=== PATIENT | female | born 1935 | race Two or more races ===

== ENCOUNTER 2024-08-19 09:15 | Inpatient (IN) | payer MEDICARE, BC, SELFPAY ==
[2024-08-19] VITALS (7 sets, daily range): BP systolic 107–173; BP diastolic 64–128; PULSE 88–135; RESP 16–19; TEMP 36.2–37.6; O2SAT 96–99; BMI 18.3; BMI 14.1
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
--- NOTE | 2024-08-19 09:28 | EKG_ITS ---
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
--- NOTE | 2024-08-19 09:42 | PC.NURSE ---
Patient to er from home via ems with c/o failure to thrive after change in medication. Currently patient alert to person, not place or time, not answering all questions. When asking patient if she is having pain patient states no , [facility], chart up to be seen by er provider.
--- NOTE | 2024-08-19 10:11 | PC.NURSE ---
Spoke with patient's son Ronnie via telephone states patient has been more weak, loss of appetite and c/o bone pain for the past weak that has progressively gotten worse, per Ronnie states he believes it is do to her change in medications, will notify provider.
[2024-08-19 10:15] LABS: Collection Type, Urine Catheter; Squamous Epithelial Cell,Urine 0 /hpf (0-5)
[2024-08-19 10:24] LABS: Amorphous Crystals,Urine Present (Absent); Bacteria,Urine Rare; Bilirubin,Urine Negative (Negative); Blood,Urine 2+ (Negative); Color,Urine Yellow (Lt Yel-Yel); Glucose, Urine Negative (Negative); Ketones,Urine 1+ (Negative); Leukocyte Esterase,Urine Positive (Negative); Nitrite,Urine Negative (Negative); PH,Urine 6.5 (5.0-7.0); Protein,Urine 1+ (Neg - Trace); RBC,Urine 17 /hpf (0-3); Specific Gravity,Urine 1.023 (1.001-1.035); WBC,Urine 56 /hpf (0-5)
[2024-08-19 10:28] LABS: Lactate (Lactic Acid) 1.6 mMol/L (0.4-2.0)
--- NOTE | 2024-08-19 10:32 | XR_ITS ---
Examination: AP chest single view Technique one AP portable semiupright chest single view Exam date and time: August 19, 2024 at 10:55 AM Comparison May 31, 2024 INDICATIONS: Coughing shortness of breath beginning 3 days ago. FINDINGS: Normal heart size Ectatic thoracic aorta. No lobar pneumonia or pulmonary edema Prominent osteopenia with thoracic dextroscoliosis Prominent bilateral shoulder calcific tendinitis IMPRESSION: No pneumonia or pulmonary edema
--- NOTE | 2024-08-19 10:32 | XR_ITS ---
Examination: CT brain head without contrast. 2-D sagittal coronal reconstructions Date and time of exam:August 19, 2024 1042 hours Comparison May 31, 2024 INDICATIONS: Altered mental status today CTDI: vol (mGy):41.5 DLP: (mGycm):792 Technique: Multiple CT axial sections of the brain have been obtained, 5 mm slice thickness. Contrast has not been administered. 2-D sagittal, coronal reconstructions have been obtained Low dose protocols were performed. One or more of the following dose reduction techniques were used; automated exposure control, adjustment of the mA and/or KV according to patient size, use of iterative reconstruction technique. Findings: No significant ventricular enlargement. Old infarct left cerebellar hemisphere Chronic microvascular white matter change Intra-axial or extra-axial hemorrhage density is not seen. No mass effect or midline shift Basal cisterns are not remarkable. Fourth ventricle is midline. Cranial vault intact. Impression: Negative for acute hemorrhage, mass effect or midline shift If symptoms persist, consider brain MRI follow-up stroke protocol
[2024-08-19 10:35] LABS: Basophils % (Auto) 0 % (0-2.5); Eosinophils % (Auto) 0 % (0-10); Hematocrit 38.4 % (36.0-46.0); Hemoglobin 12.4 g/dL (12.0-16.0); Immature Granulocytes % (Auto) 0 % (0-0); Immature Granulocytes Auto 0.06 Thou/mm3 (0.00-0.00); Lymphocytes # (Auto) 1.4 Thou/mm3 (1.0-4.8); Lymphocytes % (Auto) 9 % (10-50); Mean Corpuscular HGB Conc 32.3 g/dl (31.0-37.0); Mean Corpuscular Hemoglobin 28.3 pg (25.0-35.0); Mean Corpuscular Volume 88 fL (80-100); Monocytes # (Auto) 1.1 Thou/mm3 (0.0-0.8); Monocytes % (Auto) 7 % (0-12); Neutrophils # (Auto) 12.8 Thou/mm3 (1.8-7.7); Neutrophils % (Auto) 84 % (37-80); Nucleated Red Blood Cell % 0 /100 WBC (0); Platelet Count 426 Thou/mm3 (140-440); RDW Standard Deviation 42.8 fL (36.4-46.3); Red Blood Count 4.38 Miln/mm3 (4.00-5.20); White Blood Count 15.3 Thou/mm3 (3.6-11.0)
[2024-08-19 10:39] LABS: Clarity,Urine Hazy (Clear/Hazy)
[2024-08-19] MEDS: SODIUM CHLORIDE 0.9% 1000 ML 1,000 ML 999 ML IV (10:51)
[2024-08-19 10:55] LABS: INR 1.1 (0.9-1.3); Partial Thromboplastin Time 30.4 Seconds (22.0-36.0); Prothrombin Time 12.4 Seconds (9.0-12.2)
[2024-08-19 10:59] LABS: Ammonia < 10 uMol/L (11-32)
[2024-08-19 11:10] LABS: Alanine Aminotransferase 9 U/L (10-49); Albumin, Serum 3.5 gm/dL (3.4-4.8); Albumin/Globulin Ratio 1.1 (1.2-2.2); Alkaline Phosphatase 112 U/L (46-116); Anion Gap 10 (7-16); Aspartate Amino Transferase 12 U/L (0-34); BUN/Creatinine Ratio 50 Ratio (12-20); Bilirubin,Total 0.7 mg/dL (0.3-1.2); Blood Urea Nitrogen 20 mg/dL (9-23); Calcium 9.5 mg/dL (8.3-10.6); Calcium (Corrected) 9.9 mg/dL (8.5-10.1); Carbon Dioxide 28.1 mMol/L (20.0-31.0); Chloride 102 mMol/L (98-107); Creatinine (Component) 0.4 mg/dL (0.6-1.3); Estimated Creatinine Clearance 69.6 mL/min (>60); Globulin 3.2 gm/dL (2.3-3.5); Glucose 128 mg/dL (74-106); Magnesium 2.2 mg/dL (1.6-2.6); Osmolality,Calculated 284 (275-295); Potassium 3.1 mMol/L (3.4-5.1); Sodium 140 mMol/L (136-145); Total Protein 6.7 gm/dL (5.7-8.2); Troponin I < 0.020 ng/mL (0.0-0.045); eGFR > 60 See Note
[2024-08-19 11:12] LABS: B-Type Natriuretic Peptide 35 pg/mL (0-100)
[2024-08-19 11:24] LABS: LDH (Lactate Dehydrogenase) 374 U/L (120-246); Lipase 23 U/L (12-53); Phosphorous 2.9 mg/dL (2.4-5.1); Procalcitonin 0.28 ng/ml (0.0-0.49); Thyroid Stimulating Hormone 1.53 uIU/mL (0.55-4.78)
[2024-08-19] MEDS: POTASSIUM CHLORIDE 20 mEq TABCR 40 MEQ PO (12:24)
[2024-08-19] MEDS: cefTRIAXone/D5w 1gm IV premix 50 ML IV (12:31)
--- NOTE | 2024-08-19 14:06 | ESHP_ITS ---
Documentation for date of: 08/19/24 [facility] History of Present Illness History of present illness: Ms. Rhoades is an 89-year-old elderly female with past medical history of hypertension, dementia, depression/anxiety , unprovoked DVT and s/p right and left hip surgery presented to the ED due to altered mental status. Per son Eldon who is at bedside patient has change in her mentation for the last 2 weeks. Son states recently there was a change made to her medications aproximately 2 weeks ago, xanax and mirtazapine was added. Pt became increasingly somnolent with poor appetite. Prior to to the change in medication patient was more alert, awake and was eating more. Per son patient also has not had a bowel movement in approximately 1-1/2-week which he attributed to her not eating much. Patient underwent left hip surgery in July and right hip surgery in May over 2023. Patient had an unprovoked DVT after hip surgery in July and was started on Eliquis twice daily since. Patient has no prior cardiac history. Per son patient does not complain of anything other than few weeks ago she was complaining of dysuria and her primary care started her on nitrofurantoin for 5 days. Patient completed the course of her antibiotics for UTI from July 27 to August 01. Patient lives with her son and a caregiver that helps with daily activities. Prior to the 2 weeks that patient was able to ambulate around the house using a wheelchair and some assistance. ED course: In the ED patient's blood pressure was 157/85, pulse 100, temperature 99.7, WBC 15.3, potassium 3.1, blood glucose 128 Urinalysis positive for ketones, urine blood 2+, leukocyte esterase positive, urine RBC 17, urine WBC 56, and amorphous crystals present and rare urine bacteria In the ED patient was given 1 L NS bolus, ceftriaxone 1 g x 1, and potassium 40 mEq p.o. x 1 Images: Head CT: Negative for acute hemorrhage, mass effect or midline shift Chest x-ray: No pneumonia or pulmonary edema EKG: Sinus tachycardia with occasional SPC and no acute T wave changes PMH: HTN, depression/anxiety, dementia, Hx of unprovoked DVT PSH: Right and Left hip surgery Home Meds: Amlodipine, Eliquis, buspirone, Zoloft, Xanax, mirtazapine Review of Systems Review of Systems Systems Reviewed: All systems reviewed, normal except as documented Exam Vital Signs Temp Pulse Resp BP Pulse Ox O2 Del Method 98.8 F 103 H 18 173/81 H 96 Room Air 08/19/24 11:53 08/19/24 11:53 08/19/24 11:53 08/19/24 11:53 08/19/24 11:53 08/19/24 11:53 Narrative Exam GENERAL: Elderly frail female, awake mumbling words in Peruvian, Not in acute distress NEURO: no focal neurological deficits HEENT: Atraumatic, Normocephalic. mucous membranes moist. Eyes open, symmetrical, & clear HEART: Normal Heart Sounds LUNGS: Clear to auscultation with no wheezing or crackles. ABDOMEN: soft, non-distended, non-tender, bowel sounds heard, no guarding or rebound tenderness SKIN: No Rash or ecchymoses EXTREMITIES: No edema, tenderness, able to move all 4 extremities, pedal pulses palpated Results: Labs 08/20/24 04:40 08/20/24 04:40 Labs: Short CBC 08/19/24 Range/Units 10:22 WBC 15.3 H (3.6-11.0) Thou/mm3 Hgb 12.4 (12.0-16.0) g/dL Hct 38.4 (36.0-46.0) % Plt Count 426 (140-440) Thou/mm3 BMP 08/19/24 10:22 Sodium 140 Potassium 3.1 L Chloride 102 Carbon Dioxide 28.1 BUN 20 Creatinine 0.4 L Glucose 128 H Calcium 9.5 Cardiac Enzymes 08/19/24 Range/Units 10:22 Troponin I < 0.020 (0.0-0.045) ng/mL Liver Function 08/19/24 Range/Units 10:22 Total Bilirubin 0.7 (0.3-1.2) mg/dL AST 12 (0-34) U/L ALT 9 L (10-49) U/L Alkaline Phosphatase 112 (46-116) U/L Albumin 3.5 (3.4-4.8) gm/dL Urine 08/19/24 Range/Units 10:10 Urine Color Yellow (Lt Yel-Yel) Urine Clarity Hazy (Clear/Hazy) Urine pH 6.5 (5.0-7.0) Ur Specific [place] 1.023 (1.001-1.035) Urine Protein 1+ A (Neg - Trace) Urine Glucose (UA) Negative (Negative) Quality Measures Quality Measures none Advance care planning discussed with:: child (Son, Eldno ) Medications Home Medications and Allergies Home Medications ?Medication ?Instructions ?Recorded ?Confirmed ?Type amlodipine 5 mg tablet 5 mg PO DAILY 08/12/2308/19 History apixaban 5 mg (74 tabs) tablets in 2.5 mg PO BID 05/3108/19/24 History a dose pack (Eliquis DVT-PE Treat 30D Start) Allergies Allergy/AdvReac Type Severity Reaction Status Date / Time codeine Allergy Severe Confusion Verified 05/31/24 13:50 ALL CHOLESTEROL MEDS Allergy Unknown Uncoded 10/17/23 13:42 Visit Medications Acetaminophen (Acetaminophen 325 Mg Tablet) 650 mg PO Q6H PRN PRN Reason: Fever >101.5 Stop: 09/18/24 13:45 Amlodipine Besylate (Amlodipine Besylate 5 Mg Tablet) 5 mg PO QDAY KEESHA Stop: 09/18/24 13:59 Apixaban (Apixaban 2.5 Mg Tablet) 2.5 mg PO BID KEESHA Stop: 09/09/24 20:59 Sodium Chloride (Ns) 1,000 mls @ 75 mls/hr IV .[id number] KEESHA Stop: 09/18/24 13:59 Ceftriaxone Sodium/Dextrose (Rocephin/D5w 1gm Iv Premix) 50 mls @ 100 mls/hr IV QDAY KEES[facility] Stop: 08/26/24 14:00 Ondansetron HCl (Ondansetron Inj 2 Mg/Ml Inj 2 Ml) 4 mg IV Q6H PRN; Protocol PRN Reason: NAUSEA OR VOMITING Stop: 09/18/24 13:45 Polyethylene Glycol (Polyethylene Glycol 17 Gm Packet) 17 gm PO QDAY KEESHA Stop: 09/18/24 13:59 Sennosides (Senna Tablet) 1 tab PO QDAY KEESHA; Protocol Stop: 09/18/24 13:59 Discontinued Medications Glycerin (Glycerin, Adult 1 Ea Supp) 1 each PA X1 ONE Stop: 08/19/24 13:53 Sodium Chloride (Ns) 1,000 mls @ 999 mls/hr IV .Q1H1M ONE Stop: 08/19/24 11:31 Last Infusion: 08/19/24 12:26 Dose: Infused Ceftriaxone Sodium/Dextrose (Rocephin/D5w 1gm Iv Premix) 50 mls @ 100 mls/hr IV X1 ONE Stop: 08/19/24 12:44 Last Admin: 08/19/24 12:31 Dose: 100 mls/hr Potassium Chloride (Potassium Chloride 20 Meq Tabcr) 40 meq PO X1 ONE Stop: 08/19/24 11:56 Last Admin: 08/19/24 12:24 Dose: 40 meq Assessment & Plan Plan Ms. Rhoades is an 89-year-old elderly female with past medical history of hypertension, dementia, depression/anxiety , unprovoked DVT and s/p right and left hip surgery presented to the ED due to altered mental status. Pt is admitted to [facility] for IV antibiotics for UTI, IV fluids due to poor oral intake. #Acute encephalopathy, likely multifactorial - likely 2/2 polypharmacy, UTI and dehydration - started on IV fluids #UTI -Urine analysis is positive for hematuria, pyuria, bacteriuria -Patient complained of dysuria approximately 1 week ago, prior to that patient had a UTI July 27 and was started on nitrofurantoin for 5 days by her PCP plan: -IV fluids -Ceftriaxone started 08/19- #Constipation -per Pt's son, pt has not has a bowel movement in 1.5 week plan: -bowel regimen ordered with miralax, senna and glycerin suppository #failure to thrive -Per pt's son Pt has had poor appetite and is becoming increasingly somnolent and refusing to eat and drink water plan: -Speech evaluation ordered to assess for any possible dysphagia -Dysphagia 1 diet -maintenance IV fluids ordered -Ensure high-protein with each meal #Dementia #Anxiety #depression -Pt's home medications include: Buspirone, Zoloft, mirtazapine and Xanax -Frequent reorientation -Complete med rec, will consider resuming as Pt's mentation improves #Hypertension -Resume home amlodipine Health Maintenance Disposition: telemetry DVT Prophylaxis: not indicated as pt underwent surgery GI Prophylaxis: Pantoprozol-40 IV Qday Diet: dyphagia 1 and ensure high protein with each meal Lines: Peripheral lines Code status: Full Assessment and plan discussed with my attending physician Dr. Kandace Loving (PGY-1)- Internal medicine resident Attending Provider Attestation/Addendum I, Clara Jeronimo, , attest that I was physically present for the keita portions of the service and evaluated the patient with the resident and I reviewed and discussed the case with the resident and agree with the resident's findings and plans of care as documented above Patient is an 89-year-old female with past medical history of hypertension, dementia, depression and anxiety who an unprovoked DVT who was brought to the ED by her son due to altered mental status. Patient appeared to have had a difference in her mentation after change in her psychiatric medications including mirtazapine and buspirone. Patient has also not had a bowel movement in several days with poor p.o. intake as well. Son was not at bedside at time of my evaluation. Patient was confused and complained of pain in her feet which appeared to her on flexion. Urine appears concentrated. Patient is alert and oriented x 1. Will give IV fluids as she appears to be dehydrated. Patient noted to have pyuria on UA, will start her on Rocephin. Will also start patient on bowel regimen due to constipation. Will admit patient to med/telemetry for further workup and medical management of acute encephalopathy.
[2024-08-19] MEDS: SENNA TABLET 1 TAB PO (14:18)
[2024-08-19] MEDS: GLYCERIN, ADULT 1 EA SUPP 1 EACH PR (14:18)
[2024-08-19] MEDS: SODIUM CHLORIDE 0.9% 1000 ML 1,000 ML 75 ML IV (14:19)
[2024-08-19] MEDS: amLODIPine BESYLATE 5 MG TABLET PO (14:19)
[2024-08-19] MEDS: POLYETHYLENE GLYCOL 17 GM PACKET PO (16:46)
--- NOTE | 2024-08-19 16:54 | PC.NURSE ---
Patient very confused and agitated, cussing in romansh, not following commands, will notify provider.
--- NOTE | 2024-08-19 17:12 | PC.NURSE ---
Spoke with Dr. Vega regarding CT angio, informed him patient very agitated, resisting treatment, patient confused, Per Dr. Vega he will speak with attending physician regarding need for CT angio, burner technician Tarik made aware.
--- NOTE | 2024-08-19 18:15 | PC.NURSE ---
Spoke with Dr. Vega informed him that medication reconciled and son was asking if we could give patient her medication for aggitation/anxiety, per Dr. Vega he will review medications and place orders for agitation/anxiety
[2024-08-19] MEDS: BALSAM PERU/CASTOR OIL (Venelex) 60 GM TUBE TOP (21:01)
[2024-08-19] MEDS: MIRTAZAPINE 15 MG TABLET PO (21:02)
[2024-08-19] MEDS: BusPIRone HCL 5 MG TABLET 10 MG PO (21:02)
[2024-08-19] MEDS: APIXABAN 2.5 MG TABLET PO (21:02)
[2024-08-20] VITALS (7 sets, daily range): BP systolic 126–160; BP diastolic 68–94; PULSE 72–98; RESP 16–19; TEMP 36.2–37; O2SAT 92–99
[2024-08-20] MEDS: SODIUM CHLORIDE 0.9% 1000 ML 1,000 ML 75 ML IV ×2 (03:52→17:52)
[2024-08-20] MEDS: BusPIRone HCL 5 MG TABLET 10 MG PO ×3 (05:30→20:33)
[2024-08-20 05:52] LABS: Basophils % (Auto) 0 % (0-2.5); Eosinophils % (Auto) 0 % (0-10); Hematocrit 34.7 % (36.0-46.0); Immature Granulocytes % (Auto) 0 % (0-0); Immature Granulocytes Auto 0.04 Thou/mm3 (0.00-0.00); Lymphocytes # (Auto) 1.4 Thou/mm3 (1.0-4.8); Lymphocytes % (Auto) 11 % (10-50); Mean Corpuscular HGB Conc 31.7 g/dl (31.0-37.0); Mean Corpuscular Hemoglobin 28.3 pg (25.0-35.0); Mean Corpuscular Volume 89 fL (80-100); Monocytes # (Auto) 0.8 Thou/mm3 (0.0-0.8); Monocytes % (Auto) 6 % (0-12); Neutrophils # (Auto) 10.5 Thou/mm3 (1.8-7.7); Neutrophils % (Auto) 82 % (37-80); Nucleated Red Blood Cell % 0 /100 WBC (0); Platelet Count 367 Thou/mm3 (140-440); RDW Standard Deviation 43.8 fL (36.4-46.3); Red Blood Count 3.89 Miln/mm3 (4.00-5.20); White Blood Count 12.7 Thou/mm3 (3.6-11.0)
[2024-08-20 06:37] LABS: Alanine Aminotransferase 19 U/L (10-49); Albumin, Serum 2.8 gm/dL (3.4-4.8); Alkaline Phosphatase 107 U/L (46-116); Anion Gap 7 (7-16); Aspartate Amino Transferase 18 U/L (0-34); BUN/Creatinine Ratio 57 Ratio (12-20); Bilirubin,Total 0.6 mg/dL (0.3-1.2); Blood Urea Nitrogen 17 mg/dL (9-23); Carbon Dioxide 28.5 mMol/L (20.0-31.0); Chloride 109 mMol/L (98-107); Creatinine (Component) 0.3 mg/dL (0.6-1.3); Estimated Creatinine Clearance 71.9 mL/min (>60); Globulin 2.9 gm/dL (2.3-3.5); Glucose 112 mg/dL (74-106); Magnesium 1.9 mg/dL (1.6-2.6); Osmolality,Calculated 289 (275-295); Phosphorous 2.3 mg/dL (2.4-5.1); Potassium 3.4 mMol/L (3.4-5.1); Sodium 144 mMol/L (136-145); Total Protein 5.7 gm/dL (5.7-8.2); eGFR > 60 See Note
[2024-08-20] MEDS: cefTRIAXone/D5w 1gm IV premix 50 ML IV (09:32)
[2024-08-20] MEDS: SENNA TABLET 1 TAB PO (09:32)
[2024-08-20] MEDS: amLODIPine BESYLATE 5 MG TABLET PO (09:32)
[2024-08-20] MEDS: APIXABAN 2.5 MG TABLET PO ×2 (09:32→20:33)
[2024-08-20] MEDS: BALSAM PERU/CASTOR OIL (Venelex) 60 GM TUBE TOP (09:33)
[2024-08-20] MEDS: POLYETHYLENE GLYCOL 17 GM PACKET PO (09:58)
--- NOTE | 2024-08-20 10:09 | PC.SS ---
SS follow up: was consulted by patient's order planner on possible need for APS report needed. Contacted Dr. Hidalgo to touch basis on what the concern was and he informed no need for APS report at this time.
--- NOTE | 2024-08-20 15:28 | PC.SS ---
SS met with patient's son to discuss d/c options for home or SNF. Son is agreeable to SNF placement. Son is aware pt requires 3 midnight in pt stay at hospital to qualify for SNF placment. Son's 1st choice is [facility].
--- NOTE | 2024-08-20 18:09 | PC.NURSE ---
Pt. pulled out Iv for safety Avasure in place started now.
--- NOTE | 2024-08-20 18:45 | PD.RESPRO ---
Documentation for date of: 08/20/24 Senior resident attestation: The patient is an 89-year-old female medical history pertinent for hypertension, dementia, depression, anxiety, history of unprovoked DVT and status post hip fracture surgery was brought into the ER by the son due to altered mental status. At the time of evaluation patient is seen mumbling to herself and fidgeting motions of her fingers with her eyes closed. She is responding to simple questions but her speech is mostly confused. I spoke to the son who said that she has been mostly declining and following her hip fracture in May, though she completed home physical therapy sessions but has been requiring more medications for anxiety, recently new medications mirtazapine was added in addition to buspirone, resulting more somnolence and confusion. Per son, patient is far from baseline she is more alert, responsive and conversational. #Acute toxic encephalopathy?secondary to polypharmacy, reduced buspirone dose to 10 mg twice daily. #UTI?IV ceftriaxone started 08/19- #Protein calorie malnutrition?patient's BMI is only 14 with 35 kg speech evaluation was ordered dysphagia 1 diet started. #Deep tissue injury?patient has grade 1?2 pressure?deep tissue injury of the sacrum and hip and bilateral heels, wound care referral ordered Patient evaluated and examined at the bedside, plan of care discussed with rest of the team including my attending physician, except as noted. Quresh PGY2 Subjective Subjective Interval history: 08/20: No acute overnight events. Patient seen and examined at bedside this morning. Patient is less confused than yesterday she is able to answer some questions but most of the conversation she is mumbling and talking in [place]. Patient states that she is in pain all over particularly in her feet. Per son at bedside patient ate her dinner well however she did not eat much of her breakfast this morning. Exam Vital Signs Temp Pulse Resp BP Pulse Ox O2 Del Method 97.2 F 90 16 133/87 H 99 Room Air 08/20/24 16:00 08/20/24 16:00 08/20/24 16:00 08/20/24 16:00 08/20/24 16:08/20/24 16:00 Narrative Exam GENERAL: Elderly frail female, awake mumbling words in [place] Korean, Not in acute distress NEURO: no focal neurological deficits HEENT: Atraumatic, Normocephalic. mucous membranes moist. Eyes open, symmetrical, & clear HEART: Normal Heart Sounds LUNGS: Clear to auscultation with no wheezing or crackles. ABDOMEN: soft, non-distended, non-tender, bowel sounds heard, no guarding or rebound tenderness SKIN: No Rash or ecchymoses EXTREMITIES: No edema, tenderness, able to move all 4 extremities, pedal pulses palpated Objective Labs 08/21/24 04:22 08/21/24 04:22 Labs: Laboratory Results - last 24 hr 08/20/24 04:40 WBC 12.7 H RBC 3.89 L Hgb 11.0 L Hct 34.7 L MCV 89 MCH 28.3 MCHC 31.7 RDW Std Deviation 43.8 Plt Count 367 D Neut % (Auto) 82 H Lymph % (Auto) 11 [place] % (Auto) 6 Eos % (Auto) 0 Baso % (Auto) 0 Neut # (Auto) 10.5 H Lymph # (Auto) 1.4 [place] # (Auto) 0.8 Eos # (Auto) 0.0 Baso # (Auto) 0.0 Immature Gran # (Auto) 0.04 H Absolute Nucleated RBC 0.00 Immature Gran % 0 Nucleated RBC % 0 Sodium 144 Potassium 3.4 Chloride 109 H Carbon Dioxide 28.5 Anion Gap 7 BUN 17 Creatinine 0.3 L Estim Creat Clear Calc 71.9 eGFR > 60 BUN/Creatinine Ratio 57 H Glucose 112 H Calculated Osmolality 289 Calcium 9.0 Corrected Calcium 10.0 Phosphorus 2.3 L Magnesium 1.9 Total Bilirubin 0.6 AST 18 ALT 19 Alkaline Phosphatase 107 Total Protein 5.7 Albumin 2.8 L D Globulin 2.9 Albumin/Globulin Ratio 1.0 L Quality Measures Quality Measures none Advance care planning discussed with:: child Assessment & Plan Assessment Current Active Medications: Generic Name Dose Route Start Last Admin Trade Name Freq PRN Reason Stop Dose Admin Acetaminophen 650 mg 08/20/24 14:24 Acetaminophen 325 Mg Tablet PO 09/18/24 13:45 Q6H PRN fever > 100.3 Amlodipine Besylate 5 mg 08/19/24 14:00 08/20/24 09:32 Amlodipine Besylate 5 Mg Tablet PO 09/18/24 13:59 5 mg QDAY KEESHA Administration Apixaban 2.5 mg 08/19/24 21:00 08/20/24 09:32 Apixaban 2.5 Mg Tablet PO 09/09/24 20:59 2.5 mg BID KEESHA Administration Buspirone HCl 10 mg 08/20/24 21:00 Buspirone Hcl 5 Mg Tablet PO 09/19/24 20:59 BID KEESHA Sodium Chloride 1,000 mls @ 75 mls/hr 08/19/24 14:00 08/20/24 17:52 Ns IV 09/18/24 13:59 75 mls/hr .[id number] KEESHA Administration Ceftriaxone Sodium/Dextrose 50 mls @ 100 mls/hr 08/20/24 09:00 08/20/24 09:32 Rocephin/D5w 1gm Iv Premix IV 08/26/24 14:00 100 mls/hr QDAY KEESHA Administration Mirtazapine 15 mg 08/19/24 21:00 08/19/24 21:02 Mirtazapine 15 Mg Tablet PO 09/18/24 20:59 15 mg HS KEESHA Administration Ondansetron HCl 4 mg 08/19/24 13:46 Ondansetron Inj 2 Mg/Ml Inj 2 Ml IV 09/18/24 13:45 Q6H PRN NAUSEA OR VOMITING Protocol Polyethylene Glycol 17 gm 08/19/24 14:00 08/20/24 09:58 Polyethylene Glycol 17 Gm Packet PO 09/18/24 13:59 17 gm QDAY KEESHA Administration Sennosides 1 tab 08/19/24 14:00 08/20/24 09:32 Senna Tablet PO 09/18/24 13:59 1 tab QDAY KEESHA Administration Protocol Plan Ms. Rhoades is an 89-year-old elderly female with past medical history of hypertension, dementia, depression/anxiety , unprovoked DVT and s/p right and left hip surgery presented to the ED due to altered mental status. Pt is admitted to [facility] for IV antibiotics for UTI, IV fluids due to poor oral intake. #Acute encephalopathy, likely multifactorial - likely 2/2 polypharmacy, UTI and dehydration -Patient's mentation is improving she is able to respond to questions - started on IV fluids #UTI -Urine analysis is positive for hematuria, pyuria, bacteriuria -Patient complained of dysuria approximately 1 week ago, prior to that patient had a UTI July 27 and was started on nitrofurantoin for 5 days by her PCP plan: -IV fluids -Ceftriaxone started 08/19- #Constipation-resolved -per Pt's son, pt has not has a bowel movement in 1.5 week plan: -bowel regimen ordered with miralax, senna and glycerin suppository #failure to thrive -Per pt's son Pt has had poor appetite and is becoming increasingly somnolent and refusing to eat and drink water plan: -Speech evaluation ordered to assess for any possible dysphagia -Dysphagia 1 diet -maintenance IV fluids ordered -Ensure high-protein with each meal #Dementia #Anxiety #depression -Pt's home medications include: Buspirone, Zoloft, mirtazapine and Xanax -Frequent reorientation -Resume home buspirone and mirtazapine #Hypertension -Resume home amlodipine Health Maintenance Disposition: telemetry DVT Prophylaxis: not indicated as pt underwent surgery GI Prophylaxis: Pantoprozol-40 IV Qday Diet: dyphagia 1 and ensure high protein with each meal Lines: Peripheral lines Code status: Full Assessment and plan discussed with my senior Dr. Hidalgo and attending physician Dr. Kandace Loving (PGY-1)- Internal medicine resident Attending Provider Attestation/Addendum I, Clara Jeronimo DO, attest that I was physically present for the keita portions of the service and evaluated the patient with the resident and I reviewed and discussed the case with the resident and agree with the resident's findings and plans of care as documented above Patient seen and eval this a.m. Patient appears more alert and interactive. Patient complains of pain in her feet. Son is at bedside and states that patient has been more somnolent after switch of her psychiatric medications outpatient. He states that she no longer takes Xanax or Zoloft. Patient has also had poor appetite. He states that prior to her hip fracture, patient had been ambulatory. However, she has had poor appetite and more confused. Will decreased buspirone from 10mg PO TID to 10mg PO BID. Patient has a sacral decubitus ulcer. Son is interested in having patient go to SNF on discharge.
[2024-08-20] MEDS: MIRTAZAPINE 15 MG TABLET PO (20:32)
[2024-08-21 04:00] VITALS: BP 160/76; PULSE 106; RESP 21; TEMP 36.8; O2SAT 97
[2024-08-21 05:20] LABS: Basophils % (Auto) 0 % (0-2.5); Eosinophils % (Auto) 0 % (0-10); Hematocrit 35.2 % (36.0-46.0); Hemoglobin 10.9 g/dL (12.0-16.0); Immature Granulocytes % (Auto) 0 % (0-0); Immature Granulocytes Auto 0.04 Thou/mm3 (0.00-0.00); Lymphocytes # (Auto) 1.2 Thou/mm3 (1.0-4.8); Lymphocytes % (Auto) 13 % (10-50); Mean Corpuscular Hemoglobin 27.9 pg (25.0-35.0); Mean Corpuscular Volume 90 fL (80-100); Monocytes # (Auto) 0.5 Thou/mm3 (0.0-0.8); Monocytes % (Auto) 6 % (0-12); Neutrophils # (Auto) 7.3 Thou/mm3 (1.8-7.7); Neutrophils % (Auto) 80 % (37-80); Nucleated Red Blood Cell % 0 /100 WBC (0); Platelet Count 345 Thou/mm3 (140-440); RDW Standard Deviation 44.1 fL (36.4-46.3); White Blood Count 9.1 Thou/mm3 (3.6-11.0)
[2024-08-21 05:59] LABS: Alanine Aminotransferase 20 U/L (10-49); Albumin, Serum 2.9 gm/dL (3.4-4.8); Albumin/Globulin Ratio 0.9 (1.2-2.2); Alkaline Phosphatase 102 U/L (46-116); Anion Gap 10 (7-16); Aspartate Amino Transferase 19 U/L (0-34); BUN/Creatinine Ratio 50 Ratio (12-20); Bilirubin,Total 0.6 mg/dL (0.3-1.2); Blood Urea Nitrogen 10 mg/dL (9-23); Calcium 8.9 mg/dL (8.3-10.6); Calcium (Corrected) 9.8 mg/dL (8.5-10.1); Carbon Dioxide 27.4 mMol/L (20.0-31.0); Chloride 108 mMol/L (98-107); Creatinine (Component) 0.2 mg/dL (0.6-1.3); Estimated Creatinine Clearance 107.9 mL/min (>60); Globulin 3.1 gm/dL (2.3-3.5); Glucose 80 mg/dL (74-106); Magnesium 1.7 mg/dL (1.6-2.6); Osmolality,Calculated 286 (275-295); Phosphorous 2.6 mg/dL (2.4-5.1); Potassium 3.1 mMol/L (3.4-5.1); Sodium 145 mMol/L (136-145); eGFR > 60 See Note
[2024-08-21] MEDS: SODIUM CHLORIDE 0.9% 1000 ML 1,000 ML 75 ML IV ×2 (05:59→10:11)
[2024-08-21 08:00] VITALS: BP 134/91; PULSE 95; RESP 18; TEMP 36.2; O2SAT 95
--- NOTE | 2024-08-21 09:04 | PC.CC ---
PASSR Level 1 complete, letter downloaded. Meets criteria for categorical review. PASSR closure pending. Updated Gisselle, SS.
[2024-08-21 09:36] VITALS: BMI 14.2
[2024-08-21] MEDS: BusPIRone HCL 5 MG TABLET 10 MG PO ×2 (10:10→21:11)
[2024-08-21] MEDS: POTASSIUM CHLORIDE 20 mEq TABCR 40 MEQ PO (10:10)
[2024-08-21 10:11] VITALS: BP 134/91; PULSE 95
[2024-08-21] MEDS: SENNA TABLET 1 TAB PO (10:11)
[2024-08-21] MEDS: amLODIPine BESYLATE 5 MG TABLET PO (10:11)
[2024-08-21] MEDS: POLYETHYLENE GLYCOL 17 GM PACKET PO (10:12)
[2024-08-21] MEDS: APIXABAN 2.5 MG TABLET PO ×2 (10:12→21:11)
[2024-08-21] MEDS: cefTRIAXone/D5w 1gm IV premix 50 ML IV (10:12)
--- NOTE | 2024-08-21 11:05 | ESPR_ITS ---
Documentation for date of: 08/21/24 Senior resident attestation: The patient is an 89-year-old female medical history pertinent for hypertension, dementia, depression, anxiety, history of unprovoked DVT and status post hip fracture surgery was brought into the ER by the son due to altered mental status. At the time of evaluation patient is seen mumbling to herself and fidgeting motions of her fingers with her eyes closed. She is responding to simple questions but her speech is mostly confused. I spoke to the son who said that she has been mostly declining and following her hip fracture in May, though she completed home physical therapy sessions but has been requiring more medications for anxiety, recently new medications mirtazapine was added in addition to buspirone, resulting more somnolence and confusion. Per son, patient is far from baseline she is more alert, responsive and conversational. #Acute toxic encephalopathy?secondary to polypharmacy, reduced buspirone dose to 10 mg twice daily. #UTI?IV ceftriaxone started 08/19-08/21, microbiology resulted in Pseudomonas aeruginosa in urine culture, sensitive to fluoroquinolones, started on levofloxacin 250 mg daily for uncomplicated UTI. QTc less than 450 on admission EKG, will continue to monitor if symptomatic. #Protein calorie malnutrition?patient's BMI is only 14 with 35 kg speech evaluation was ordered dysphagia 1 diet started. #Deep tissue injury?patient has grade 1?2 pressure?deep tissue injury of the sacrum and hip and bilateral heels, wound care referral ordered Patient evaluated and examined at the bedside, plan of care discussed with rest of the team including my attending physician, except as noted. Quresh PGY2 Subjective Subjective Interval history: no acute overnight events. Pt is alert and awake this morning. She is still mumbling in british and talking. when redirect her attention she is able to tell her full name, and names of all her children and also able to inform she is with the doctor in [place]. Pt states she has pain everywhere. Exam Vital Signs Temp Pulse Resp BP Pulse Ox O2 Del Method 97.2 F 95 18 134/91 H 95 Room Air 08/21/24 08:00 08/21/24 10:11 08/21/24 08:00 08/21/24 10:11 08/21/24 08:00 08/21/24 08:00 Narrative Exam GENERAL: Elderly frail female, awake mumbling words in Thai, Not in acute distress NEURO: no focal neurological deficits HEENT: Atraumatic, Normocephalic. mucous membranes moist. Eyes open, symmetrical, & clear HEART: Normal Heart Sounds LUNGS: Clear to auscultation with no wheezing or crackles. ABDOMEN: soft, non-distended, non-tender, bowel sounds heard, no guarding or rebound tenderness SKIN: No Rash or ecchymoses EXTREMITIES: No edema, tenderness, able to move all 4 extremities, pedal pulses palpated Objective Labs 08/21/24 04:22 08/21/24 04:22 Labs: Laboratory Results - last 24 hr 08/21/24 04:22 WBC 9.1 RBC 3.90 L Hgb 10.9 L Hct 35.2 L MCV 90 MCH 27.9 MCHC 31.0 RDW Std Deviation 44.1 Plt Count 345 Neut % (Auto) 80 Lymph % (Auto) 13 [place] % (Auto) 6 Eos % (Auto) 0 Baso % (Auto) 0 Neut # (Auto) 7.3 Lymph # (Auto) 1.2 [place] # (Auto) 0.5 Eos # (Auto) 0.0 Baso # (Auto) 0.0 Immature Gran # (Auto) 0.04 H Absolute Nucleated RBC 0.00 Immature Gran % 0 Nucleated RBC % 0 Sodium 145 Potassium 3.1 L Chloride 108 H Carbon Dioxide 27.4 Anion Gap 10 BUN 10 Creatinine 0.2 L Estim Creat Clear Calc 107.9 eGFR > 60 BUN/Creatinine Ratio 50 H Glucose 80 Calculated Osmolality 286 Calcium 8.9 Corrected Calcium 9.8 Phosphorus 2.6 Magnesium 1.7 Total Bilirubin 0.6 AST 19 ALT 20 Alkaline Phosphatase 102 Total Protein 6.0 Albumin 2.9 L Globulin 3.1 Albumin/Globulin Ratio 0.9 L Quality Measures Quality Measures none Advance care planning discussed with:: child Assessment & Plan Assessment Current Active Medications: Generic Name Dose Route Start Last Admin Trade Name Freq PRN Reason Stop Dose Admin Acetaminophen 650 mg 08/20/24 14:24 Acetaminophen 325 Mg Tablet PO 09/18/24 13:45 Q6H PRN fever > 100.3 Amlodipine Besylate 5 mg 08/19/24 14:00 08/21/24 10:11 Amlodipine Besylate 5 Mg Tablet PO 09/18/24 13:59 5 mg QDAY KEESHA Administration Apixaban 2.5 mg 08/19/24 21:00 08/21/24 10:12 Apixaban 2.5 Mg Tablet PO 09/09/24 20:59 2.5 mg BID KEESHA Administration Buspirone HCl 10 mg 08/20/24 21:00 08/21/24 10:10 Buspirone Hcl 5 Mg Tablet PO 09/19/24 20:59 10 mg BID KEESHA Administration Sodium Chloride 1,000 mls @ 75 mls/hr 08/19/24 14:00 08/21/24 10:11 Ns IV 09/18/24 13:59 75 mls/hr .[id number] KEESHA Administration Ceftriaxone Sodium/Dextrose 50 mls @ 100 mls/hr 08/20/24 09:00 08/21/24 10:12 Rocephin/D5w 1gm Iv Premix IV 08/26/24 14:00 100 mls/hr QDAY KEESHA Administration Mirtazapine 15 mg 08/19/24 21:00 08/20/24 20:32 Mirtazapine 15 Mg Tablet PO 09/18/24 20:59 15 mg HS KEESHA Administration Ondansetron HCl 4 mg 08/19/24 13:46 Ondansetron Inj 2 Mg/Ml Inj 2 Ml IV 09/18/24 13:45 Q6H PRN NAUSEA OR VOMITING Protocol Polyethylene Glycol 17 gm 08/19/24 14:00 08/21/24 10:12 Polyethylene Glycol 17 Gm Packet PO 09/18/24 13:59 17 gm QDAY KEESHA Administration Sennosides 1 tab 08/19/24 14:00 08/21/24 10:11 Senna Tablet PO 09/18/24 13:59 1 tab QDAY KEESHA Administration Protocol Plan Ms. Rhoades is an 89-year-old elderly female with past medical history of hypertension, dementia, depression/anxiety , unprovoked DVT and s/p right and left hip surgery presented to the ED due to altered mental status. Pt is admitted to [facility] for IV antibiotics for UTI, IV fluids due to poor oral intake. #Acute encephalopathy, likely multifactorial - likely 2/2 polypharmacy, UTI and dehydration -Patient's mentation is improving she is able to respond to questions - IV fluids ordered #UTI -Urine analysis is positive for hematuria, pyuria, bacteriuria -Patient complained of dysuria approximately 1 week ago, prior to that patient had a UTI July 27 and was started on nitrofurantoin for 5 days by her PCP plan: -IV fluids -Ceftriaxone started 08/19- #Constipation-resolved -per Pt's son, pt has not has a bowel movement in 1.5 week plan: -bowel regimen ordered with miralax, senna and glycerin suppository #moderate protein calorie malnutrition #failure to thrive -Pt weights 35.1kg with BMI 14.3 -Per pt's son Pt has had poor appetite and is becoming increasingly somnolent and refusing to eat and drink water plan: -Speech evaluation ordered to assess for any possible dysphagia -Dysphagia 1 diet - IV fluids given -Ensure high-protein with each meal #Dementia #Anxiety #depression -Pt's home medications include: Buspirone, Zoloft, mirtazapine and Xanax -Frequent reorientation -Resume home buspirone and mirtazapine #Hypertension -Resume home amlodipine Health Maintenance Disposition: telemetry DVT Prophylaxis: not indicated as pt underwent surgery GI Prophylaxis: Pantoprozol-40 IV Qday Diet: dyphagia 1 and ensure high protein with each meal Lines: Peripheral lines Code status: Full Assessment and plan discussed with my senior Dr. Hidalgo and attending physician Dr. Kandace Loving (PGY-1)- Internal medicine resident Attending Provider Attestation/Addendum Clara Hampton DO, attest that I was physically present for the keita portions of the service and evaluated the patient with the resident and I reviewed and discussed the case with the resident and agree with the resident's findings and plans of care as documented above Patient seen eval this a.m. She appears to be more alert today and was able to sit up with physical therapy. However, patient had significant pain due to pressure ulcer. Son was at bedside and wishes for patient to go to SNF. He inquired about hospice due to lack of improvement with appetite, functional status and development of pressure ulcer. He states that he would like to see how patient progresses at SNF before speaking with hospice. Patient can otherwise be discharged to SNF tomorrow. Patient appears to be tolerating buspirone 10mg PO BID.
--- NOTE | 2024-08-21 11:59 | PC.SS ---
Pt was accepted to [facility]. Kenyetta from [facility] states she will have bed available on Saturday but is currently attempting to make room changes. [facility] does not have female beds available at this time. SS has informed patent's son and his 2nd choice is [facility].
[2024-08-21 12:00] VITALS: BP 137/92; PULSE 78; RESP 17; TEMP 36.4; O2SAT 96
[2024-08-21 16:00] VITALS: BP 126/75; PULSE 100; RESP 18; TEMP 37.2; O2SAT 96
[2024-08-21] MEDS: LEVOFLOXACIN 250 MG TABLET PO (17:16)
[2024-08-21 17:33] VITALS: BMI 12.0
[2024-08-21 20:00] VITALS: BP 131/64; PULSE 98; RESP 16; TEMP 36.3; O2SAT 97
[2024-08-21] MEDS: MIRTAZAPINE 15 MG TABLET PO (21:11)
[2024-08-22] VITALS: BP 151/79; PULSE 97; RESP 16; TEMP 36.4; O2SAT 96
[2024-08-22 04:00] VITALS: BP 148/75; PULSE 96; RESP 16; TEMP 36.4; O2SAT 99
[2024-08-22 06:02] LABS: Basophils % (Auto) 0 % (0-2.5); Eosinophils % (Auto) 0 % (0-10); Hematocrit 33.7 % (36.0-46.0); Hemoglobin 10.6 g/dL (12.0-16.0); Immature Granulocytes % (Auto) 0 % (0-0); Immature Granulocytes Auto 0.06 Thou/mm3 (0.00-0.00); Lymphocytes # (Auto) 1.2 Thou/mm3 (1.0-4.8); Lymphocytes % (Auto) 8 % (10-50); Mean Corpuscular HGB Conc 31.5 g/dl (31.0-37.0); Mean Corpuscular Hemoglobin 27.7 pg (25.0-35.0); Mean Corpuscular Volume 88 fL (80-100); Monocytes # (Auto) 0.6 Thou/mm3 (0.0-0.8); Monocytes % (Auto) 4 % (0-12); Neutrophils # (Auto) 13.3 Thou/mm3 (1.8-7.7); Neutrophils % (Auto) 88 % (37-80); Nucleated Red Blood Cell % 0 /100 WBC (0); Platelet Count 328 Thou/mm3 (140-440); RDW Standard Deviation 43.7 fL (36.4-46.3); Red Blood Count 3.83 Miln/mm3 (4.00-5.20); White Blood Count 15.1 Thou/mm3 (3.6-11.0)
[2024-08-22 06:26] LABS: Alanine Aminotransferase 16 U/L (10-49); Albumin, Serum 2.8 gm/dL (3.4-4.8); Albumin/Globulin Ratio 0.9 (1.2-2.2); Alkaline Phosphatase 94 U/L (46-116); Anion Gap 8 (7-16); Aspartate Amino Transferase 11 U/L (0-34); BUN/Creatinine Ratio 47 Ratio (12-20); Bilirubin,Total 0.5 mg/dL (0.3-1.2); Blood Urea Nitrogen 14 mg/dL (9-23); Calcium 8.8 mg/dL (8.3-10.6); Calcium (Corrected) 9.8 mg/dL (8.5-10.1); Carbon Dioxide 29.6 mMol/L (20.0-31.0); Chloride 106 mMol/L (98-107); Creatinine (Component) 0.3 mg/dL (0.6-1.3); Estimated Creatinine Clearance 71.9 mL/min (>60); Glucose 164 mg/dL (74-106); Magnesium 1.9 mg/dL (1.6-2.6); Osmolality,Calculated 291 (275-295); Phosphorous 2.5 mg/dL (2.4-5.1); Potassium 3.2 mMol/L (3.4-5.1); Sodium 144 mMol/L (136-145); Total Protein 5.8 gm/dL (5.7-8.2); eGFR > 60 See Note
[2024-08-22 08:00] VITALS: BP 142/84; PULSE 92; RESP 17; TEMP 36.3; O2SAT 97
[2024-08-22] MEDS: Magnesium Sulfate 1 gm Ivpb 1 GM/100 ML BAG IV (09:29)
[2024-08-22] MEDS: POLYETHYLENE GLYCOL 17 GM PACKET PO (09:29)
[2024-08-22] MEDS: POTASSIUM CHLORIDE 10% 20 MEQ/15 ML UDC 40 MEQ PO (09:29)
[2024-08-22 09:30] VITALS: BP 142/84; PULSE 92
[2024-08-22] MEDS: amLODIPine BESYLATE 5 MG TABLET PO (09:30)
[2024-08-22] MEDS: LEVOFLOXACIN 250 MG TABLET PO (09:30)
[2024-08-22] MEDS: BusPIRone HCL 5 MG TABLET 10 MG PO (09:30)
[2024-08-22] MEDS: SENNA TABLET 1 TAB PO (09:30)
[2024-08-22] MEDS: APIXABAN 2.5 MG TABLET PO (09:30)
[2024-08-22] MEDS: POTASSIUM CHL 10 mEq IVPB 10 MEQ/100 ML BAG 100 MEQ IV ×4 (09:31→13:44)
--- NOTE | 2024-08-22 10:24 | ESDS_ITS ---
<Statement entered by Gaudencio Chacko MD - 08/22/24 16:55> Agree with plan and examination finding on the note below. Patient seen and examined at bedside today. Labs and imaging reviewed. Patient care discussed with my attending and co-resident Dr. Galvez. Planned Discharge Date 08/22/24 DS: Providers Provider Date of admission: 08/19/24 13:46 Primary care physician: Fortunato Patel MD Admitting Provider: Clara Jeronimo DO Attending Provider on Admission: Clara Jeronimo DO Consults: 08/19/24 14:01 Referral Physical Therapy Routine Comment: Physician Instructions: 08/19/24 14:02 Referral Speech Therapy Routine Comment: 08/20/24 08:00 Referral Wound Care Routine Comment: 08/20/24 16:16 Referral Nutritional Services Routine Comment: Pressure injuries present on admission Attending Provider on DC: Bobby Galvez MD Discharging Provider: Bobby Galvez MD DS: Diagnosis Problem List Completed Was Problem List Reviewed/Reconciled?: Yes Hospital Course Hospital Course Hospital course: Ms. Rhoades is an 89-year-old elderly female with past medical history of hypertension, dementia, depression/anxiety , unprovoked DVT and s/p right and left hip surgery presented to the ED due to altered mental status. Pt is admitted to [facility] for IV antibiotics for UTI, IV fluids due to poor oral intake. With regards to patient's encephalopathy etiology was found to be likely multifactorial. Patient was on high-dose mirtazapine as well as bupropion which was subsequently decreased. Patient also had a UTI which urine culture showed to grow Pseudomonas sensitive to levofloxacin. Patient was treated with levofloxacin 250 Mg p.o. daily initially which was increased to levofloxacin 750 Mg p.o. daily for 3 more days upon discharge. With regards to patient's constipation she was treated with a bowel regimen of MiraLAX, senna and glycerin suppository. For patient's protein calorie malnutrition and failure to thrive she was placed on a dysphagia 1, high-protein diet. Patient's home medication of Xanax was discontinued due to polypharmacy possibly causing her altered mental status. All patient's labs are now returning to baseline. Patient is now clinically stable and fit for discharge to SNF. Discharge diagnoses: 1. Acute toxic/metabolic encephalopathy?resolving 2. Complicated UTI?resolving 3. Constipation?resolved 4. Protein calorie malnutrition 5. Failure to thrive 6. Dementia 7. Anxiety 8. Depression 9. Essential hypertension Discharge plan: ?You have been started on a medication levofloxacin 750 mg for your urinary tract infection. Please take 1 tablet once a day for 3 more day to complete the course. ?Recommend discontinuing mirtazapine as that led to excessive drowsiness, also recommend discontinuing sedating medications like Xanax or hydroxyzine. ?Recommend following up with your primary care doctor and discuss recent hospitalization. ?In case of worsening symptoms, hide call your PCP, dial 911 or present to the emergency department. We are grateful to be able to participate in Mrs. Rhoades's care. We wish her the best. Plan of care discussed with Attending Dr. Chapman and PGY3 Dr. Ginna Galvez MD PGY 1 Time Spent with Patient Time attestation: Total time spent providing and/or coordinating discharge services: Time spent: Greater than 30 minutes (36) Exam Vital Signs Temp Pulse Resp BP Pulse Ox O2 Del Method 97.3 F 92 17 142/84 H 97 Room Air 08/22/24 08:00 08/22/24 09:30 08/22/24 08:00 08/22/24 09:30 08/22/24 08:00 08/22/24 08:00 Narrative Exam Constitutional Alert, oriented x 1 [Person] and comfortable. Elderly Female, Cachectic, bi- temporal wasting HEENT Vision grossly intact. Patent nares. Trachea midline Respiratory Chest normal on inspection and clear auscultation bilaterally Cardiovascular S1 and S2 audible, RRR. No murmurs carotid bruit. No gross JVD. Abdominal Soft and non tender to palpation in all quadrants. BS + Genitourinary No bladder tenderness, no flank pain. Normal to palpation Musculoskeletal Extremities tone within normal limits. No LE edema. Neurological CN II - XII grossly intact. Extremity motor and sensation grossly intact. Skin Warm, dry and intact. No apparent lesions. Psychiatric Patient has good affect, is cooperative Discharge Plan Plan Patient Disposition: Xfer Skilled Nsg Fac (SNF) Patient condition on transfer: Stable Care Plan Goals: You have been started on a medication levofloxacin 750 mg for your urinary tract infection. Please take 1 tablet once a day for 3 more day to complete the course. Recommend discontinuing mirtazapine as that led to excessive drowsiness, also recommend discontinuing sedating medications like Xanax or hydroxyzine. Recommend following up with your primary care doctor and discuss recent hospitalization. In case of worsening symptoms, hide call your PCP, dial 911 or present to the emergency department. Prescriptions/Referrals Prescriptions/Med Rec: New sennosides [Senna Lax] 8.6 mg Tablet 8.6 mg PO QDAY 30 Days Qty: 30 0RF buspirone 10 mg tablet 10 mg PO BID Qty: 60 0RF amlodipine 5 mg tablet 5 mg PO QDAY Qty: 30 0RF levofloxacin 750 mg tablet 750 mg PO QDAY Qty: 3 0RF Continued Eliquis DVT-PE Treat 30D Start 5 mg (74 tabs) tablets,dose pack 2.5 mg PO BID Discontinued buspirone 10 mg Tablet 10 mg PO TID amlodipine 5 mg tablet 5 mg PO DAILY Patient Comments: TAKE 1 TABLET BY MOUTH ONCE DAILY mirtazapine 15 mg tablet 15 mg PO HS Patient Comments: TAKE 1 TABLET BY MOUTH EVERY DAY AT BEDTIME Referrals: Fortunato Patel MD [Primary Care Provider] - Patient/Caregiver Discharge Instructions Print Language: Kazakh Stand Alone Forms: Courtney Award Info., Patient Portal Info Letter Discharge Order Discharge Orders: Discharge (Routine); Ordered 08/22/24 Ordered By: Bobby Galvez Quality Discharge Quality Measures VTE prophylaxis Attestestation Attestation I discussed with and supervised the resident physician who took care of this patient. I agree with the assessment and discharge plan as above. Patient should contact her PCP or return to the emergency room for recurrent symptoms.
--- NOTE | 2024-08-22 11:54 | PC.SS ---
SS LM for [facility] to call back to set up transportation SS informed [facility] setting up transportation SS spoke with Eldon confirmed prefernce is [place]; SS will work with [facility] to set up transportation SS recevied call from [facility], female bed has opened up and it will be held for pt SS spoke with son, Ronnie ceballos, confirmed plan is go to SNF; choice is [facility] since [place] not option; SS went over medicare information; informed Eldon of transportation will be out of pocket; Eldon understood and confirmed he would like to use same service as last time ([facility]) SS will set this up
[2024-08-22 12:00] VITALS: BP 120/75; PULSE 103; RESP 18; TEMP 36.2; O2SAT 97
--- NOTE | 2024-08-22 12:02 | PC.SS ---
SS LM for [facility] to call back to set up transportation SS informed [facility] setting up transportation SS spoke with Eldon confirmed prefernce is [place]; SS will work with [facility] to set up transportation SS recevied call from Destiny, female bed has opened up and it will be held for pt SS spoke with son, Ronnie ceballos, confirmed plan is go to SNF; choice is [facility] since [place] not option; SS went over medicare information; informed Eldon of transportation will be out of pocket; Eldon understood and confirmed he would like to use same service as last time ([facility]) SS will set this up
--- NOTE | 2024-08-22 12:25 | PC.SS ---
SS spoke with Tamar inform of transportation SS spoke with Destiny bradford sending pt information back over and faxed to nurses station [phone]; informed of transportation set for 3:30 SS spoke with JAYNE Soto, provided information for gurney transport; Charles will contact sonEldon, for payment; set transportation time for 3:30
[2024-08-22] MEDS: ACETAMINOPHEN 325 MG TABLET 650 MG PO (13:47)
--- NOTE | 2024-08-22 14:51 | PC.NURSE ---
Report given to MARJORIE Prather. [facility] at 1530, see orders.
== END 2024-08-22 15:28 | disposition skilled nursing facility (03) | DRG 689 ==
LOC: SERX 12:14 → SERHOLD 14:54 → S3SX 19:50
PROVIDERS: Student in an Organized Health Care Education/Training Program; Admitting Provider Internal Medicine; Emergency Provider Emergency Medicine; PCP Internal Medicine; Visit Provider Internal Medicine
DX: N39.0 Urinary tract infection, site not specified (principal); G92.8 Other toxic encephalopathy; E44.0 Moderate protein-calorie malnutrition; F03.93 Unspecified dementia, unspecified severity, with mood disturbance; Z68.1 Body mass index [BMI] 19.9 or less, adult; F03.94 Unspecified dementia, unspecified severity, with anxiety; I10 Essential (primary) hypertension; K59.00 Constipation, unspecified; E86.0 Dehydration; R62.7 Adult failure to thrive; R31.9 Hematuria, unspecified; R13.10 Dysphagia, unspecified; L89.152 Pressure ulcer of sacral region, stage 2; B96.5 Pseudomonas (aeruginosa) (mallei) (pseudomallei) as the cause of diseases classified elsewhere; R29.6 Repeated falls; Z79.899 Other long term (current) drug therapy; Z11.52 Encounter for screening for COVID-19; Z88.5 Allergy status to narcotic agent; Z87.440 Personal history of urinary (tract) infections; T50.915A Adverse effect of multiple unspecified drugs, medicaments and biological substances, initial encounter; Z86.718 Personal history of other venous thrombosis and embolism; Z79.01 Long term (current) use of anticoagulants
CPT/HCPCS: 36415; 70450; 71045; 80053; 81001; 82140; 83605; 83615; 83690; 83735; 83880; 84100; 84145; 84443; 84484; 85025; 85610; 85730; 87040; 87077; 87086; 87186; 87400; 87811; 92526; 92610; 97162; J0696; J3475; J3480; J7030; A9270